=== PATIENT | born 1995 | race Caucasian/White ===

== ENCOUNTER 2023-04-24 10:51 | Emergency (ER) | payer SELFPAY ==
[~2023-04-24] VITALS: Ht 167.6 cm; Wt 94.3 kg
[2023-04-24 11:46] VITALS: BP 159/110; PULSE 93; RESP 16; TEMP 98.6; O2SAT 97
[2023-04-24] MEDS: ACETAMINOPHEN 325 MG TAB PO ONE (12:50)
[2023-04-24] MEDS: LIDOCAINE MPF 1% 10 MG/ML VIAL INJ ONE (12:56)
[2023-04-24] MEDS ORDERED: BACI-418 TP (13:50)
[2023-04-24] MEDS ORDERED: IBUP-2213 PO (13:50)
== END 2023-04-24 14:15 | disposition home or self-care (01) ==
LOC: MED 10:51
DX: S61.210A Laceration without foreign body of right index finger without damage to nail, initial encounter (principal); Z79.1 Long term (current) use of non-steroidal anti-inflammatories (NSAID); Z79.2 Long term (current) use of antibiotics; W25.XXXA Contact with sharp glass, initial encounter; Y93.89 Activity, other specified; Y92.89 Other specified places as the place of occurrence of the external cause; Y99.8 Other external cause status
CPT/HCPCS: 12001; 73130; 90471; 90715; 99283; J2001

== ENCOUNTER 2023-05-13 09:57 | Emergency (ER) | payer SELFPAY ==
[~2023-05-13] VITALS: Ht 167.6 cm; Wt 95.7 kg
[~2023-05-13 09:57] MED LIST: BACI-418 TP; IBUP-2213 PO
[2023-05-13 10:17] VITALS: BP 145/92; PULSE 65; RESP 18; TEMP 97.2; O2SAT 98
== END 2023-05-13 12:17 | disposition home or self-care (01) ==
LOC: MED 09:57
DX: S61.210A Laceration without foreign body of right index finger without damage to nail, initial encounter (principal); S61.212A Laceration without foreign body of right middle finger without damage to nail, initial encounter; Z48.02 Encounter for removal of sutures; X58.XXXA Exposure to other specified factors, initial encounter; Y93.89 Activity, other specified; Y92.89 Other specified places as the place of occurrence of the external cause; Y99.8 Other external cause status
CPT/HCPCS: 81025; 96372; 99281; 99285